=== PATIENT | female | born 1950 | race Caucasian/White ===

== ENCOUNTER 2016-11-15 01:41 | Inpatient (IN) | payer OTHER ==
[~2016-11-15] VITALS: Ht 167.6 cm; Wt 59.4 kg
[~2016-11-15 01:41] MED LIST: ACCUNEB SO1.25 MG/1 INH; ASPIR 8181 MG PO; AUGMENTIN 875875 MG PO; BENTYL 20 MG TA20 M1 PO; DICYCLOMINE HCL10 MG PO; FLONASE 0.05%50 MCG NASAL; LIALDA1.2 GM PO; LISINOPRIL20 MG PO; PROTONIX40 M1 PO; QVAR8.7 G1 IH; QVAR8.7 G1 INH; SYSTANE 0.3-0.1 EACH OPHTHALMIC; TUMS PO; TYLENOL SINUS1 EAC3 PO; UNICOMPLEX M TA1 TA1 PO
[2016-11-15 01:44] VITALS: BP 133/74
[2016-11-15] MEDS ORDERED: BENTYL 20 MG TA20 M1 PO (01:50)
[2016-11-15 02:05] LABS: HEMATOCRIT 40.1 % (37.0-47.0); HEMOGLOBIN 13.3 gm/dL (12.0-15.0); MCH 28.1 pg (26.0-34.0); MCHC 33.1 g/dL (28.0-37.0); MCV 84.8 fL (80.0-100.0); PLATELET COUNT 288 thou/uL (150-400); RBC 4.74 mil/uL (4.20-5.00); RDW 13.7 % (10.5-14.5); WBC 12.8 thou/uL (4.0-11.0)
[2016-11-15 02:06] LABS: MANUAL DIFF YES
[2016-11-15 02:41] LABS: ANION GAP 14 mmol/L (7-16); BUN 16 mg/dL (7-18); CALCIUM 9.9 mg/dL (8.5-10.1); CHLORIDE 102 mmol/L (98-107); CO2 23 mmol/L (21-32); CREATININE 0.9 mg/dL (0.6-1.0); GLUCOSE 153 mg/dL (74-106); POTASSIUM 3.5 mmol/L (3.5-5.1); SODIUM 139 mmol/L (136-145)
[2016-11-15 02:46] LABS: ALKALINE PHOSPHATASE 150 U/L (46-116); DIRECT BILIRUBIN < 0.1 mg/dL (<0.1-0.3); SGOT 19 U/L (15-37); SGPT 15 U/L (30-65); TOTAL BILIRUBIN 0.4 mg/dL (<0.1-1.0); TOTAL PROTEIN 7.7 g/dL (6.4-8.2)
[2016-11-15 02:52] LABS: ABSOLUTE NEUTROPHILS 10.6 thou/uL (1.4-8.2); TOTAL CELL COUNT 100
[2016-11-15 04:52] VITALS: BP 145/74
[2016-11-15 05:01] VITALS: BP 159/80
[2016-11-15 16:42] VITALS: BP 144/90
[2016-11-15 20:00] VITALS: BP 143/76
[2016-11-16 03:58] LABS: HEMATOCRIT 33.3 % (37.0-47.0); MCH 28.8 pg (26.0-34.0); MCHC 33.6 g/dL (28.0-37.0); MCV 85.8 fL (80.0-100.0); PLATELET COUNT 217 thou/uL (150-400); RBC 3.88 mil/uL (4.20-5.00); WBC 9.6 thou/uL (4.0-11.0)
[2016-11-16 04:00] VITALS: BP 124/71
[2016-11-16 04:01] LABS: HEMOGLOBIN 11.2 gm/dL (12.0-15.0)
[2016-11-16 04:02] LABS: MANUAL DIFF YES
[2016-11-16 04:03] LABS: CALCIUM 8.2 mg/dL (8.5-10.1); CREATININE 0.6 mg/dL (0.6-1.0)
[2016-11-16 04:45] LABS: ABSOLUTE NEUTROPHILS 8.9 thou/uL (1.4-8.2); TOTAL CELL COUNT 100
[2016-11-16 08:56] VITALS: BP 138/79
[2016-11-16 16:00] VITALS: BP 150/89
[2016-11-16 20:00] VITALS: BP 151/86
[2016-11-17 04:00] VITALS: BP 142/87
[2016-11-17 04:43] LABS: CALCIUM 8.3 mg/dL (8.5-10.1); CREATININE 0.6 mg/dL (0.6-1.0); POTASSIUM 3.9 mmol/L (3.5-5.1)
[2016-11-17 10:07] VITALS: BP 153/91
[2016-11-17 18:22] VITALS: BP 167/98
[2016-11-17] MEDS ORDERED: PREDNISONE 20 M20 M1 PO (18:28)
[2016-11-17] MEDS ORDERED: PENTASA 250 MG250 MG PO (18:38)
[2016-11-17 18:48] VITALS: BP 167/98
[2016-11-21 12:56] LABS: NIL (NEGATIVE) CONTROL SPOT CT 0; PANEL A SPOT CT 0; PANEL B SPOT CT 0; T-SPOT.TB INVALID
[2016-11-21 13:02] LABS: POSITIVE CONTROL SPOT COUNT 3
== END 2016-11-17 19:25 | disposition home or self-care (01) | DRG 389 ==
LOC: ER 01:41 → EROBS 04:06 → 4N 04:06
PROVIDERS: Emergency Medicine; Internal Medicine Gastroenterology; Surgery
DX: K56.60 Unspecified intestinal obstruction (principal); K50.90 Crohn's disease, unspecified, without complications; J45.909 Unspecified asthma, uncomplicated; K21.9 Gastro-esophageal reflux disease without esophagitis; I10 Essential (primary) hypertension; G43.909 Migraine, unspecified, not intractable, without status migrainosus; Z90.49 Acquired absence of other specified parts of digestive tract; Z88.2 Allergy status to sulfonamides; Z84.89 Family history of other specified conditions; Z98.49 Cataract extraction status, unspecified eye
CPT/HCPCS: 10790

== ENCOUNTER 2017-04-17 21:26 | Inpatient (IN) | payer OTHER ==
[~2017-04-17] VITALS: Ht 167.6 cm; Wt 59.9 kg
--- NOTE | ~2017-04-17 | HC ---
[facility] [place] [address] CONSULTATION Name: BERNIE VÁSQUEZ Room #: 352-P ADM IN M.R.#: [id number] Admission: 04/17/17 Attend Phys: Chepe Valadez Discharge: Date of : 52 Report #: [id number] THIS REPORT FOR: //name// CC: Chepe Dove MD DATE OF SERVICE: 04/18/2017 REASON FOR CONSULTATION: Right breast mass. HISTORY OF PRESENT ILLNESS: This is a 67-year-old female patient who was seen in the Emergency Room with abdominal pain and vomiting. She has a history of Crohn's disease as well as irritable bowel syndrome and has been conservatively treated for a small-bowel obstruction this past May with resolution, not requiring surgical intervention. The patient presented with similar symptoms and was seen in the [facility] where she underwent a CT of the abdomen and pelvis, which revealed diffuse fluid filling the ascending and proximal transverse colon with firm stool throughout the distal transverse colon suggestive of developing diarrhea and moderate stool within the colon. also identified incidentally was a 1.3 x 3.2 cm right breast mass in the subareolar region and a persistent 2.9 x 3.4 cm ovarian cyst. I have been asked to see the patient for further evaluation and treatment of her breast mass. She reports continued nausea. She has been performing self-breast exams and states that her only mammogram was for screening purposes when she was approximately 41 years old, over 20 years ago. PAST MEDICAL HISTORY: Significant for Crohn's disease, irritable bowel syndrome, previous TIA, atrial fibrillation, hypertension. PAST SURGICAL HISTORY: Includes open appendectomy and ovarian cystectomy, tonsillectomy and adenoidectomy, cataract surgery and release of a trigger thumb. MEDICATIONS: Cardizem, Zestril, Pentasa, beclomethasone, Bentyl and aspirin. ALLERGIES: SULFA DRUGS cause tachycardia. FAMILY HISTORY: Reviewed and noncontributory to this hospitalization. The patient denies family history for breast cancer, ovarian cancer or colon cancer. SOCIAL HISTORY: The patient denies use of tobacco or illicit drugs. She drinks alcoholic beverages one to two times per year. She is retired. REVIEW OF SYSTEMS: As per history of present illness. In addition: [address] [address] CONSULTATION Name: BERNIE VÁSQUEZ Room #: 352-P [facility] IN ..#: [id number] Admission: 04/17/17 Attend Phys: Chepe Valadez Discharge: Date of : 52 Report #: [id number] CONSTITUTIONAL: The patient denies fever, chills. Denies an intentional weight loss. HEENT: Denies changes in taste, vision, hearing, or smell. RESPIRATORY: Denies shortness of breath or COPD. CARDIOVASCULAR: Denies chest pain or palpitations. GASTROINTESTINAL: As per history of present illness, has ongoing nausea, underwent a colonoscopy a few years ago. GENITOURINARY: Denies dysuria, urgency, increased urinary frequency or hematuria. MUSCULOSKELETAL: Denies myalgia, arthralgia arthritis. NEUROLOGIC: Denies headaches, numbness or tingling. PSYCHIATRIC: Denies depression, anxiety or suicidal ideations. SKIN AND INTEGUMENTARY: Denies any skin lesions, rashes or moles. ENDOCRINE: Denies polydipsia, polyuria, heat or cold intolerance. HEMATOLOGIC: Denies easy bleeding, bruising or anemia. All other review of systems is negative. PHYSICAL EXAMINATION: VITAL SIGNS: Temperature 97.8, blood pressure 101/60, pulse 71, respirations 16. GENERAL: This is a well-developed, well-nourished 67-year-old female patient in no acute distress. HEENT: Atraumatic, normocephalic with moist mucosal membranes. Oropharynx is clear. She has no scleral icterus. NECK: Supple. No appreciable lymphadenopathy. Trachea is midline. CHEST: Clear bilaterally. No crackles or wheezes. CARDIOVASCULAR: Regular rate and rhythm, S1, S2. BREAST: (Counselor Dormitory present in the room) revealed a subareolar right breast mass approximately 2 cm in diameter located at the 6 o'clock position, just inferior to the nipple areolar complex. The mass was nontender to palpation and is not particularly firm. There is no surrounding erythema or edema. The patient had no lymphadenopathy. No left breast masses or adenopathy were identified. ABDOMEN: Soft and nondistended with mild diffuse tenderness to palpation. Negative Hanna sign. No guarding, no palpable masses. GENITOURINARY: Normal external female genitalia. EXTREMITIES: No clubbing, cyanosis or edema. NEUROLOGIC: Cranial nerves 2-12 grossly intact. PSYCHIATRIC: Normal mood and affect. SKIN AND INTEGUMENTARY: No acute inflammatory changes, rashes or lesions are present. LABORATORY DATA: CBC shows a white blood cell count of 13.5, hemoglobin 9.2, hematocrit 28.5, platelets 226. Electrolytes show sodium of 139, potassium 4.2, chloride 109, CO2 26, BUN 13, creatinine 0.8 and glucose 88. Lactate was normal at 0.9. Liver function tests were within normal limits. [address] [address] CONSULTATION Name: BERNIE VÁSQUEZ Room #: 352-P ADM IN [facility]#: [id number] Admission: 04/17/17 Attend Phys: Chepe Rand Cathiestephanie Discharge: Date of : 52 Report #: [id number] IMPRESSION AND PLAN: This is a 67-year-old female patient with the above-listed comorbidities and who presented with abdominal pain, nausea and vomiting. CT scan shows diarrhea, but no acute changes were otherwise seen. Incidentally found was a right breast mass. This must be further characterized with a mammogram and ultrasound with a biopsy if indicated. Further recommendations will be made pending results of these studies. In addition, the patient's abdominal pain must be worked up. GI is on the case. An abdominal ultrasound has been ordered. The patient could have biliary disease. No gallstones are identified, the patient may benefit from a PIPIDA scan. Finally, the ovarian mass must also be further characterized. A transvaginal pelvic ultrasound has been ordered. A CA-125 has been drawn as well and is currently pending. Continue current care otherwise and we will await further studies. I sincerely appreciate the opportunity to participate in the care of this patient. I will leave further recommendations and orders in the electronic medical record as appropriate. <ELECTRONICALLY SIGNED> By: Amado Guevara MD, FACS 04/20/17 0841 0630 0806 Amado Guevara MD, FACS /nt
--- NOTE | ~2017-04-17 | S ---
[facility] [place] [address] SURGICAL PATH RPT PROCEDURE Name: BERNIE VÁSQUEZ Room #: 352-P ADM IN M.R.#: [id number] Admission: 04/17/17 Date of : 52 Discharge: Report #: [id number] Path Case #: [id number] PATHOLOGY REPORT COLLECTION DATE: 04/17/2017 RECEIVED DATE: 04/18/2017 SUBMITTING PHYS: Dr. Chepe Valadez OTHER PHYS: Dr. Aleksandra Dove SPECIMEN(S) RECEIVED: A.Antrum * * * * * * * * * * * * FINAL DIAGNOSIS: "Antrum", biopsy: - Gastric antral-type mucosa with mild reactive changes and mild chronic inflammation. - Gastric body type mucosa with minimal chronic inflammation. - Negative H. pylori immunohistochemical stain (block A1); control reacted appropriately. (CLW:blaine; 04/19/2017) PATHOLOGIST: Shereen Goyal M.D. REPORT ELECTRONICALLY SIGNED BY: Shereen Goyal M.D. DATE/TIME: 04/19/2017 21:56 * * * * * * * * * * * * GROSS PATHOLOGY: Received in formalin labeled "Bernie Vásquez, antrum/body r/o H. pylori," are 3 segments of dodson soft tissue measuring 1.1 x 0.3 x 0.3 cm in aggregate dimensions and ranging from 0.2 to 0.4 cm in maximum dimension. The specimen is submitted entirely in cassette A1. (TSD; 04/18/2017) CLINICAL HISTORY: Pre-OP DX: Nausea/vomiting Post-OP DX: Mild erythemia antrum INITIAL CPT CODE(S): A; 54641, 56370(2) Professional services performed by [facility] at [facility] [address] [place] [address] Technical services performed by [facility] at [address] [place] [address] [address] [place] [address] SURGICAL PATH RPT PROCEDURE Name: BERNIE VÁSQUEZ Room #: 352-P [facility] IN [facility]#: [id number] Admission: 04/17/17 Date of : 52 Discharge: Report #: [id number] Path Case #: [id number] [place] [address]. [facility] [address] [place] [address] PHONE: [phone] DIRECTOR: Derian Almaguer M.D. * * * END OF REPORT * * *
--- NOTE | ~2017-04-17 | S ---
[facility] [place] [address] SURGICAL PATH RPT PROCEDURE Name: BERNIE VÁSQUEZ Room #: 353-P [facility] IN M.R.#: [id number] Admission: 04/17/17 Date of : 52 Discharge: 04/21/17 Report #: [id number] Path Case #: [id number] PATHOLOGY REPORT COLLECTION DATE: 04/20/2017 RECEIVED DATE: 04/23/2017 SUBMITTING PHYS: Dr. Amado Guevara OTHER PHYS: Dr. Chepe Dove SPECIMEN(S) RECEIVED: A.Gallbladder * * * * * * * * * * * * FINAL DIAGNOSIS: Gallbladder, cholecystectomy: - Mild chronic cholecystitis. (IUV:mml; 04/24/2017) PATHOLOGIST: Rosa Elena Henning M.D. REPORT ELECTRONICALLY SIGNED BY: Rosa Elena Henning M.D. DATE/TIME: 04/24/2017 15:58 * * * * * * * * * * * * GROSS PATHOLOGY: Received in formalin labeled "Bernie Vásquez gallbladder," is a 6.2 x 3.9 x 1.4 cm, previously opened gallbladder with dark green, wrinkled serosal surfaces. Opening the gallbladder reveals dark green, velvety mucosa and an average wall thickness of 0.2 cm. Calculi are not present and no masses are noted grossly. Healthcare Architect sections from the body and fundus are submitted along with the proximal margin in cassette A1. (TSD; 04/23/2017) CLINICAL HISTORY: Biliary colic INITIAL CPT CODE(S): A; 94477 Professional services performed by [facility] at [facility] [address], [place] [address] Technical services performed by [facility] at [address] [place] [address]. [facility] [address] [place] [address] SURGICAL PATH RPT PROCEDURE Name: BERNIE VÁSQUEZ Room #: 353-P [facility] IN ..#: [id number] Admission: 04/17/17 Date of : 52 Discharge: 04/21/17 Report #: [id number] Path Case #: [id number] [place] [id number] [address] PHONE: [phone] DIRECTOR: Derian Almaguer M.D. * * * END OF REPORT * * *
--- NOTE | ~2017-04-17 | EKG ---
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
--- NOTE | ~2017-04-17 | P ---
[facility] [address] PROCEDURE REPORT Name: BERNIE VÁSQUEZ Room #: 417-I ADM IN M.R.#: [id number] Admission: 04/17/17 Attend Phys: Chepe Valadez Discharge: Date of : 52 Report #: [id number] THIS REPORT FOR: //name// CC: Chepe Dove PROCEDURE: EGD with biopsies. ROOM: [facility]. PATIENT OF: Dr. Valadez. INDICATION FOR PROCEDURE: This patient presented with nausea, vomiting, dry heaves, epigastric and right upper quadrant pain of undetermined etiology. EGD is being performed to try to evaluate the symptoms. The patient also has a history of Crohn's disease. Informed consent for this procedure was obtained prior to the administration of any medication. The risks of the procedure, which include bleeding, perforation, infection, complications of sedation and the possibility I could miss something have been explained to the patient and she has indicated her consent by signing. Propofol was slowly titrated before and during this procedure for the patient comfort by the anesthesia service. The [employer] upper videoscope was introduced through the upper esophageal sphincter and advanced under direct visualization to the descending duodenum. Findings are noted on withdrawal of the scope. The duodenal mucosa appears normal throughout its entirety. Pylorus, normal mucosa. Antrum, erythematous mucosa, mild case. Body, normal mucosa. Cardia and fundus, normal mucosa. Retroflex view reveals possibility of a hiatal hernia. Biopsies obtained from the antrum and body of the stomach for histopathology. Good hemostasis was noted after all biopsies. The scope was withdrawn to the esophagus. The Z-line is appropriately located at the top of the gastric folds and appears normal. The esophageal mucosa appears normal throughout its entirety. The scope was withdrawn. The patient went to the recovery area in stable condition. She tolerated the procedure well. IMPRESSION: Mild antral erythema. Other than that, normal EGD to descending duodenum. The etiology of the patient's pain is not clear from this exam. RECOMMENDATION: My recommendations would be to proceed with ultrasound of the abdomen for further evaluation of her abdominal pain and evaluation of her gallbladder. She will also benefit from a PIPIDA scan with gallbladder ejection fraction. We will ask that she will have a pelvic ultrasound with transvaginal evaluation [address] [address] PROCEDURE REPORT Name: BERNIE VÁSQUEZ Room #: [address] [place] [address] [place] ..#: [id number] Admission: 04/17/17 Attend Phys: Chepe Valadez Discharge: Date of : 52 Report #: [id number] of an ovarian cyst. I agree with further workup for the breast abnormality seen on CT scan. Thank you very much once again for allowing me to participate in her care, Dr. Valadez. We are also going to be giving her some suppositories to see if we can get the stool in her distal colon cleaned out as I think this might give some relief to her pain. <ELECTRONICALLY SIGNED> By: Agata Medina DO 04/18/17 1904 1438 1516 Agata Medina DO /nt
--- NOTE | ~2017-04-17 | O ---
[facility] [place] [address] OPERATIVE REPORT Name: BERNIE VÁSQUEZ Room #: 353-P [facility]..#: [id number] Admission: 04/17/17 Attend Phys: Chepe Valadez Discharge: 04/21/17 Date of : 52 Report #: [id number] THIS REPORT FOR: //name// CC: Chepe Dove MD DATE OF SERVICE: 04/20/2017 PREOPERATIVE DIAGNOSES: 1. Biliary colic with dyskinesia. 2. Crohn's disease. 3. Irritable bowel syndrome. POSTOPERATIVE DIAGNOSES: 1. Biliary colic with dyskinesia and chronic cholecystitis. 2. Crohn's disease. 3. Irritable bowel syndrome. PROCEDURE: Laparoscopic cholecystectomy with intraoperative cholangiogram. ANESTHESIA: General endotracheal anesthesia and local anesthetic. ESTIMATED BLOOD LOSS: 5 mL. SPECIMEN: Gallbladder. COMPLICATIONS: None appreciated. INDICATIONS FOR PROCEDURE: This is a 67-year-old female patient who was admitted with abdominal pain, nausea, and vomiting. She has a history of a small-bowel obstruction in the past as well as a history of Crohn's disease and irritable bowel syndrome. CT showed no evidence for obstruction. Her gallbladder appeared normal. Further workup had shown no cause for her persistent nausea and vomiting other than a PIPIDA scan, which showed 33% gallbladder ejection fraction. This was consistent with biliary dyskinesia. The patient presents now for laparoscopic cholecystectomy with cholangiogram. OPERATIVE FINDINGS: Upon entrance into the abdominal cavity, the liver, stomach, small bowel and colon in the surrounding area appeared otherwise normal. There was no significant scar tissue in the pelvis. The critical view consisting of the cystic artery, cystic duct and lower edge of the gallbladder forming a window through which the liver was visible was seen prior to clipping the cystic duct for cholangiogram. The cholangiogram showed no filling defects within the biliary tree. Contrast flowed freely into the duodenal sweep. After division of the cystic duct, 3 clips remained on the cystic duct stump. After [facility] [address] [place] [address] OPERATIVE REPORT Name: BERNIE VÁSQUEZ Room #: 353-P [facility]#: [id number] Admission: 04/17/17 Attend Phys: Chepe Valadez Discharge: 04/21/17 Date of : 52 Report #: [id number] removal of the gallbladder from the patient's body, the liver bed was hemostatic and the Hemoclips were secured. No other significant intra-abdominal pathology was identified with no significant scar tissue in the pelvis. The gallbladder was opened on the backtable. Cholesterolosis was seen within the wall of the gallbladder internally. There was evidence for chronic cholecystitis. At the conclusion of the operation, the sponge, needle, and instrument counts were correct. The patient tolerated the procedure well. DESCRIPTION OF PROCEDURE IN DETAIL: After the benefits and risks of the procedure were explained to the patient which include but are not limited to risks of bleeding, infection, injury to the biliary tree, injury to adjacent organs, risk of DVT, pulmonary embolus, postoperative pain and postoperative expectations informed consent was obtained. The patient was identified in the preoperative holding area. The patient was then given IV antibiotics as documented in the chart to comply with the SCIP protocol. The patient was taken to the operating room and was placed in the supine position. The patient was given IV sedation and was intubated without incident. A time-out was performed to correctly identify the patient and procedure. SCDs were placed on the patient's bilateral lower extremities. The patient's abdomen was then prepped and draped in the standard sterile fashion with ChloraPrep. Local anesthetic was infiltrated into the skin and subcutaneous tissue. A periumbilical incision was made with a #15 blade scalpel. The 11-mm Visiport was then placed intraperitoneally with the 10-mm 0-degree angled laparoscope. After confirmation of placement within the peritoneal cavity, the scope was changed to a 10-mm 30 degree angled laparoscope and pneumoperitoneum was achieved with insufflation of carbon dioxide. The patient was placed in the reverse Trendelenburg position, rotated to the patient's left. A subxiphoid 5 mm and right subcostal 5 mm ports times 2 were placed under direct visualization after local anesthetic was infiltrated into the skin and subcutaneous tissue and appropriately sized incisions were made. Operative findings are as noted above. The dome of the gallbladder was retracted in a cephalad direction. The gallbladder peritoneum was scored medially and laterally after takedown of the adhesions to the gallbladder. Dissection was carried out around the cystic artery and cystic duct to identify each structure as entering directly into the gallbladder. The critical view as described above was seen. A Hemoclip was then placed on the cystic duct at its junction with the gallbladder. A ductotomy was made and the cholangiocatheter was passed into the cystic duct. A clip was placed, contrast was then injected and cholangiogram findings are as noted above. The cholangiocatheter was then removed and the cystic duct was triply clipped distal to the ductotomy. The duct was divided at the ductotomy site with the ultrasonic dissector. The cystic artery was then divided with the ultrasonic dissector with good hemostasis as well. The gallbladder was then dissected off the liver bed with the ultrasonic dissector, and after fully removing the gallbladder, it was placed in an Endopouch and then removed through the periumbilical port site. [address] [address] OPERATIVE REPORT Name: BERNIE VÁSQUEZ Room #: 353-P [facility] IN M.R.#: [id number] Admission: 04/17/17 Attend Phys: Chepe Rand Cathiestephanie Discharge: 04/21/17 Date of : 52 Report #: [id number] The abdominal cavity was then reentered. Other operative findings are as noted above. The liver bed was made hemostatic with electrocautery. After ensuring final hemostasis and ensuring that the clips were secure, the periumbilical port site fascial opening was closed with a simple interrupted 0 PDS suture under direct visualization using the Titus Castanon laparoscopic fascial closure device. The ports were removed and the abdominal cavity was desufflated. The fascial suture was tied. Interrupted subcuticular 4-0 Monocryl sutures and Dermabond were used to close the skin. The patient tolerated the procedure well. The patient was awakened, extubated and taken to the recovery room in stable condition with no apparent intraoperative complications. <ELECTRONICALLY SIGNED> By: Amado Guevara MD, FACS 04/22/17 2322 1519 1545 Amado Guevara MD, FACS /nt
--- NOTE | ~2017-04-17 | HC ---
[facility] [place] [address] CONSULTATION Name: BERNIE VÁSQUEZ Room #: 417-I [facility] IN ..#: [id number] Admission: 04/17/17 Attend Phys: Chepe Valadez Discharge: Date of : 52 Report #: [id number] THIS REPORT FOR: //name// CC: Chepe Dove MD DATE OF SERVICE: 04/18/2017 GASTROENTEROLOGY CONSULTATION The patient of Dr. Aleksandra Dove and Dr. Chepe Valadez. CHIEF COMPLAINT: This is a very pleasant 67-year-old white female who presented to the [facility] emergency room with sudden onset of epigastric and right upper quadrant pain that radiated all across her epigastric area. It was associated with nausea, vomiting and dry heaves. The etiology of this pain was unclear and further workup was indicated, so she was admitted to the hospital. PAST MEDICAL HISTORY: Significant for Crohn disease, depression, hypertension, migraine headaches, ocular migraines, small bowel obstruction, gastroesophageal reflux, TIA, an elevated alkaline phosphatase of uncertain etiology and anemia. PAST SURGICAL HISTORY: Significant for an appendectomy, cataract surgery and release of a trigger finger. ALLERGIES: SULFA. MEDICATIONS: Prior to admission included enteric-coated aspirin 325 mg, QVAR, dicyclomine, diltiazem, lisinopril and mesalamine. SOCIAL HISTORY: She does not smoke. She does not drink alcohol. She does not use street drugs. FAMILY HISTORY: Significant for Crohn disease in her brother. Other family history includes no history of colon polyps, colon cancer or celiac disease or ulcerative colitis in her family. REVIEW OF SYSTEMS: She denies any dysphagia, odynophagia, hiatal hernia, peptic ulcer disease, hematemesis, hematochezia or melena, change in appetite or change in weight. She admits to gastroesophageal reflux, nausea, vomiting, dry heaves, epigastric and right upper quadrant pain. PHYSICAL EXAMINATION: GENERAL: Reveals a well-developed, well-nourished 67-year-old white female who [facility] [address] [email or web address] [address] CONSULTATION Name: BERNIE VÁSQUEZ Room #: 417-I [facility] IN [facility]#: [id number] Admission: 04/17/17 Attend Phys: Chepe Valadez Discharge: Date of : 52 Report #: [id number] is in no apparent distress. She is awake, alert and oriented x 4 and cooperative and pleasant to converse with. She intermittently does vomit or have dry heaves during this interview. VITAL SIGNS: Blood pressure 101/60, temperature 97.8, pulse 71, respirations are 16 and oxygen saturation is 98% on room air. HEENT: She is normocephalic, atraumatic and anicteric. HEART: Rate and rhythm are regular with normal S1 and S2. LUNGS: Clear bilaterally. ABDOMEN: Soft. Bowel sounds are present, but decreased in all 4 quadrants. There is no palpable organomegaly or mass. There is tenderness in the mid epigastric region in the right upper quadrant and in the left upper quadrant, but no rebound or guarding. EXTREMITIES: Warm and dry. No peripheral cyanosis, clubbing or edema. NEUROLOGIC: She appears grossly intact without lateralizing signs, but I did not test her extensively neurologically. SIGNIFICANT LABORATORY DATA: Chloride was mildly elevated at 109. Creatinine was 1.2 on admission, down to 0.8 today. Glucose was 141 on admission, down to 88 today. Her liver enzymes and lipase were all either normal or low today, but yesterday her alkaline phosphatase was elevated at 154. Albumin is 2.7. Her white blood cell count on admission was 18,000 and hemoglobin was 12.1. Today her white count was 13.5 and her hemoglobin was 9.2. Indices were all normal. RDW is 15.4. Platelet count is normal at 226. She has not had urinalysis done this admission. RADIOLOGY EXAM: CT scan of the abdomen and pelvis shows diffuse fluid filling the ascending and proximal transverse colon with formed stool throughout the distal transverse, descending and sigmoid colon. She had a 1.3 x 3.2 cm size structure in the right breast at 9 o'clock in the subareolar region that requires further assessment. She had a 2.9 x 3.4 cm size left ovarian cyst of uncertain etiology. This is a persistent ovarian cyst. She has a sliding type hiatal hernia, fluid filled the lower stomach. She had advanced degenerative changes present at the L5-S1 level in her spine and anteriorly at the T11-T12 level. There was no acute bony process. She had an ultrasound of the abdomen done that showed an unremarkable liver and spleen and pancreas. Gallbladder looked normal, but no wall thickening or pericholecystic fluid. There was no significant bile duct dilatation. Pelvic ultrasound with transvaginal ultrasound showed a tiny amount of hypoechoic fluid in the endometrial cavity. Neither ovary could be identified as a discrete structure. No mass or lesions or abnormal fluid collection identified in the adnexal region, and I could not see the ovarian cyst on this test. She had unilateral ultrasound of the right breast that showed a small nodular opacity in the inferomedial right breast. There were mildly dilated ducts with some complex fluid or debris, that they thought contributed to this appearance. There was a small, fairly well-circumscribed, ovoid, hypoechoic nodular lesion, measuring 4 x 5 x 6 mm in the right breast. This looks like a complex cyst at the 6 o'clock position. [facility] [address] [place] [address] CONSULTATION Name: BERNIE VÁSQUEZ Room #: 417-I ADM IN [facility].#: [id number] Admission: 04/17/17 Attend Phys: Chepe Valadez Discharge: Date of : 52 Report #: [id number] The unilateral right mammogram showed scattered fibroglandular changes with focal subareolar fibroglandular tissue. There is a 6-mm nodular opacity identified in the inferomedial right breast. There was a small circumscribed nodular opacity seen in the right breast on MLO projection that was suggestive of lymph node. No spiculated mass lesions and no suspicious clustered microcalcifications were seen. No architectural distortion or skin thickening. We did request a CA-125, which was normal at 9.4. A CA 27.29 was pending. IMPRESSION: 1. Epigastric right upper quadrant pain, nausea, vomiting and dry heaves as a presenting diagnosis. 2. Anemia with the hemoglobin of 9.2 today, down from 12.1 on admission yesterday with normal indices and a mildly elevated RDW of 15.4. Alkaline phosphatase was elevated on admission yesterday at 154. It is down to 109, which is normal today. Her other liver enzymes are all normal. GGTP was normal today. Lactic acid level was 2.1 on admission yesterday and came down to 0.9 today. Her white count was 18 on admission and 13.5 today. IMPRESSION: 1. Nausea, vomiting, right upper quadrant pain and epigastric pain, undetermined etiology. 2. Anemia, normocytic and normochromic. 3. Gastroesophageal reflux. 4. Elevated alkaline phosphatase that has corrected now. 5. History of Crohn disease. 6. History of depression. 7. Hypertension. 8. Migraine headaches. 9. Ocular migraines. 10. History of small bowel obstruction. 11. Gastroesophageal reflux. 12. History of transient ischemic attack. 13. Past surgical history is significant for an appendectomy, cataract surgery and trigger finger release. 14. ALLERGIES ARE TO SULFA. 15. Her medications prior to admission are as above. 16. Right breast nodule. 17. Left ovarian cyst. RECOMMENDATIONS: As follows. Further workup of the right breast nodule and followup is indicated. I would recommend that patient proceed to EGD today to evaluate the epigastric pain further. We have also requested and reported here in the results of her ultrasound of the abdomen, CT scan of the abdomen and pelvis, transvaginal ultrasound of the pelvis as above. She will also need to have a PIPIDA scan tomorrow. We will recheck her labs including a CBC with diff in the morning. [address] [address] CONSULTATION Name: BERNIE VÁSQUEZ Room #: 417-I ADM IN .R.#: [id number] Admission: 04/17/17 Attend Phys: Chepe Valadez Discharge: Date of : 52 Report #: [id number] I agree with proton pump inhibitors as opposed to Pepcid if there are findings that are significant on EGD. Thank you very much once again for allowing me to participate in her care, Dr. Valadez. <ELECTRONICALLY SIGNED> By: Agata Medina DO 04/19/17 [id number] Agata Medina DO /nt
[~2017-04-17 21:26] MED LIST changes: +PENTASA 250 MG250 MG PO; +PREDNISONE 20 M20 M1 PO
[2017-04-17 21:30] VITALS: BP 96/48
[2017-04-17] MEDS ORDERED: DILTIAZEM 24HR240 M1 PO (21:38)
[2017-04-17] MEDS ORDERED: ASA5UEC PO (21:38)
[2017-04-17 22:04] LABS: HEMATOCRIT 36.6 % (37.0-47.0); HEMOGLOBIN 12.1 gm/dL (12.0-15.0); MCH 27.7 pg (26.0-34.0); MCHC 33.1 g/dL (28.0-37.0); MCV 83.8 fL (80.0-100.0); RBC 4.36 mil/uL (4.20-5.00); RDW 15.6 % (10.5-14.5)
[2017-04-17 22:08] LABS: CALCIUM 9.7 mg/dL (8.5-10.1); CREATININE 1.2 mg/dL (0.6-1.0); POTASSIUM 3.5 mmol/L (3.5-5.1)
[2017-04-17 22:15] LABS: TOTAL BILIRUBIN 0.2 mg/dL (<0.1-1.0); TOTAL PROTEIN 7.2 g/dL (6.4-8.2)
[2017-04-17 23:31] VITALS: BP 111/49
[2017-04-18] VITALS: BP 109/54
[2017-04-18] MEDS ORDERED: LISINOPRIL20 MG PO (00:11)
[2017-04-18 04:58] VITALS: BP 96/51
[2017-04-18 06:56] LABS: HEMATOCRIT 28.5 % (37.0-47.0); MCH 27.1 pg (26.0-34.0); MCHC 32.3 g/dL (28.0-37.0); MCV 84.1 fL (80.0-100.0); RBC 3.39 mil/uL (4.20-5.00); RDW 15.4 % (10.5-14.5); WBC 13.5 thou/uL (4.0-11.0)
[2017-04-18 06:59] LABS: HEMOGLOBIN 9.2 gm/dL (12.0-15.0)
[2017-04-18 07:03] LABS: CREATININE 0.8 mg/dL (0.6-1.0); POTASSIUM 4.2 mmol/L (3.5-5.1)
[2017-04-18 07:06] LABS: CALCIUM 7.7 mg/dL (8.5-10.1)
[2017-04-18 08:17] VITALS: BP 101/60
[2017-04-18 10:38] LABS: ALBUMIN 2.7 g/dL (3.4-5.0); ALKALINE PHOSPHATASE 109 U/L (46-116); SGOT 21 U/L (15-37); SGPT 10 U/L (30-65); TOTAL BILIRUBIN 0.2 mg/dL (<0.1-1.0); TOTAL PROTEIN 5.3 g/dL (6.4-8.2)
[2017-04-18 10:47] LABS: DIRECT BILIRUBIN < 0.1 mg/dL (<0.1-0.3)
[2017-04-18 15:35] VITALS: BP 128/75
[2017-04-18 19:08] LABS: CA 125 9.4 U/mL (0.0-38.1)
[2017-04-18 19:13] VITALS: BP 134/63
[2017-04-18 20:31] LABS: ABSOLUTE NEUTROPHILS 6.9 thou/uL (1.4-8.2); BASOPHILS 0.2 % (0.0-2.0); EOSINOPHILS 0.4 % (0.0-3.0); HEMATOCRIT 29.6 % (37.0-47.0); HEMOGLOBIN 9.6 gm/dL (12.0-15.0); MCH 27.7 pg (26.0-34.0); MCHC 32.5 g/dL (28.0-37.0); MCV 85.1 fL (80.0-100.0); MONOCYTES 8.6 % (1.0-8.0); PLATELET COUNT 217 thou/uL (150-400); POLYS 78.8 % (36.0-66.0); RBC 3.48 mil/uL (4.20-5.00); RDW 15.7 % (10.5-14.5); WBC 8.8 thou/uL (4.0-11.0)
[2017-04-18 20:32] LABS: MANUAL DIFF NO
[2017-04-19] VITALS (8 sets, daily range): BP systolic 112–148; BP diastolic 52–80
[2017-04-19 06:33] LABS: % SATURATION 19 % (20-39); IRON 52 ug/dL (50-170); TIBC 274 ug/dL (250-450); UIBC 222 ug/dL
[2017-04-19 15:07] LABS: CA 27.29 13.7 U/mL (0.0-38.6)
[2017-04-20 03:40] VITALS: BP 126/65
[2017-04-20 16:45] VITALS: BP 150/82
[2017-04-20 19:13] VITALS: BP 143/76
[2017-04-21 04:02] VITALS: BP 147/83
[2017-04-21 07:39] VITALS: BP 143/72
[2017-04-21] MEDS ORDERED: NORCO 5-325 TA1 EACH PO (09:37)
[2017-04-21 11:09] VITALS: BP 143/72
== END 2017-04-21 14:12 | disposition home or self-care (01) | DRG 417 ==
LOC: ER 21:26 → 4E 23:12 → EROBS 23:12 → 4E 23:45 → 3W 04-19 14:37
PROVIDERS: Emergency Medicine; Internal Medicine Gastroenterology; Nurse Practitioner Family
DX: K80.44 Calculus of bile duct with chronic cholecystitis without obstruction (principal); N17.0 Acute kidney failure with tubular necrosis; K50.90 Crohn's disease, unspecified, without complications; K56.7 Ileus, unspecified; K21.9 Gastro-esophageal reflux disease without esophagitis; I48.91 Unspecified atrial fibrillation; I10 Essential (primary) hypertension; D64.9 Anemia, unspecified; F32.9 Major depressive disorder, single episode, unspecified; G43.809 Other migraine, not intractable, without status migrainosus; N63.0 Unspecified lump in unspecified breast; N83.202 Unspecified ovarian cyst, left side; Z98.42 Cataract extraction status, left eye; Z90.49 Acquired absence of other specified parts of digestive tract; Z86.73 Personal history of transient ischemic attack (TIA), and cerebral infarction without residual deficits; Z84.89 Family history of other specified conditions; Z98.41 Cataract extraction status, right eye; Z88.2 Allergy status to sulfonamides; Z79.899 Other long term (current) drug therapy; Z23 Encounter for immunization
CPT/HCPCS: 10084; 10779; 50010; 50101; 50249; 50411; 50555; 50558; 50962; 51975; 52265; 53307; 54022; 54118; 55245; 55317; 56462; 56525; 56526; 62110; 62900; 70005

== ENCOUNTER 2017-06-08 10:13 | Emergency (ER) | payer OTHER ==
[~2017-06-08] VITALS: Ht 167.6 cm; Wt 55.3 kg
--- NOTE | ~2017-06-08 | EKG ---
[address] [address] ELECTROCARDIOGRAM REPORT Name: BERNIE VÁSQUEZ [place] Room #: [facility]#: [id number] Admission: 06/08/17 Attend Phys: Discharge: 06/08/17 Date of : 52 Report #: [id number] THIS REPORT FOR: //name// [facility] ED Test Date: 2017-06-08 Test Time: 11:59:29 Pat Name: BERNIE VÁSQUEZ Department: Room: Gender: F Case Filler: [id number] : 1950 Requested By: Cipriano Neri Order Number: [id number] MD: Carl Mcdaniel Measurements Intervals [place] Rate: 72 P: 64 LA: 167 QRS: 6 QRSD: 97 T: 69 QT: 403 QTc: 442 Interpretive Statements Sinus rhythm Compared to ECG 04/27/2017 06:32:57 No significant changes Electronically Signed On 06-09-2017 12:39:50 [employer] by Carl Mcdaniel [email or web address] <ELECTRONICALLY SIGNED> By: Carl Mcdaniel MD 06/09/17 1239 [id number] [id number] Carl Mcdaniel MD /GILLES
[~2017-06-08 10:13] MED LIST changes: +ASA5UEC PO; +CIPRO500 MG PO; +DILTIAZEM 24HR240 M1 PO; +FLAGYL500 MG PO; +NORCO 5-325 TA1 EACH PO
[2017-06-08 11:17] LABS: HEMATOCRIT 28.3 % (37.0-47.0); HEMOGLOBIN 8.9 gm/dL (12.0-15.0); MCH 24.8 pg (26.0-34.0); MCHC 31.6 g/dL (28.0-37.0); MCV 78.3 fL (80.0-100.0); PLATELET COUNT 325 thou/uL (150-400); RBC 3.61 mil/uL (4.20-5.00); WBC 3.7 thou/uL (4.0-11.0)
[2017-06-08 11:22] LABS: MANUAL DIFF YES
[2017-06-08 11:30] LABS: APTT 22.2 Seconds (24.5-32.8); CALCIUM 9.2 mg/dL (8.5-10.1); CREATININE 0.9 mg/dL (0.6-1.0); POTASSIUM 3.8 mmol/L (3.5-5.1); PROTIME 10.4 Seconds (9.3-11.4)
[2017-06-08 11:37] LABS: ALBUMIN 3.7 g/dL (3.4-5.0); TOTAL BILIRUBIN 0.2 mg/dL (<0.1-1.0); TOTAL PROTEIN 7.4 g/dL (6.4-8.2)
[2017-06-08 11:59] LABS: ABSOLUTE NEUTROPHILS 1.7 thou/uL (1.4-8.2); MAGNESIUM 2.4 mg/dL (1.8-2.4); TOTAL CELL COUNT 100; TROPONIN-I < 0.04 ng/mL (<0.06)
[2017-06-08 12:00] LABS: ANISOCYTOSIS 1+
[2017-06-08 13:05] LABS: URINE BILIRUBIN NEGATIVE (Negative); URINE BLOOD TRACE (Negative); URINE COLOR YELLOW; URINE GLUCOSE-RANDOM* NEGATIVE (Negative); URINE KETONES NEGATIVE (Negative); URINE NITRITE NEGATIVE (Negative); URINE PROTEIN (DIPSTICK) NEGATIVE (Negative); URINE SPECIFIC GRAVITY <= 1.005 (1.003-1.035); URINE UROBILINOGEN 0.2 E.U./dl (0.2-1.0)
[2017-06-08] MEDS ORDERED: VALIUM2 MG PO (13:59)
[2017-06-08] MEDS ORDERED: ANTIVERT25 MG PO (13:59)
== END 2017-06-08 15:00 | disposition home or self-care (01) ==
LOC: ER 10:13
PROVIDERS: Emergency Medicine
DX: D50.0 Iron deficiency anemia secondary to blood loss (chronic) (principal); K50.90 Crohn's disease, unspecified, without complications; J06.9 Acute upper respiratory infection, unspecified; K21.9 Gastro-esophageal reflux disease without esophagitis; J45.909 Unspecified asthma, uncomplicated; I10 Essential (primary) hypertension; I48.91 Unspecified atrial fibrillation; Z90.49 Acquired absence of other specified parts of digestive tract; Z88.2 Allergy status to sulfonamides

== ENCOUNTER → 2017-06-19 | Outpatient (CLI) | payer OTHER ==
[~2017-06-19] MED LIST changes: +ANTIVERT25 MG PO; +VALIUM2 MG PO
[2017-06-19 12:52] VITALS: BP 105/46; BP 106/43
[2017-06-19 15:10] VITALS: BP 106/43; BP 106/53; BP 120/57
== END ==
LOC: OPONC 09:36
DX: D62 Acute posthemorrhagic anemia (principal)
CPT/HCPCS: 91030

== ENCOUNTER → 2017-06-22 | Outpatient (CLI) | payer OTHER | LOC: GI 06:21 | DX: K50.90 Crohn's disease, unspecified, without complications (principal); D64.89 Other specified anemias ==